=== PATIENT | female | born 1935 | race Caucasian/White ===

== ENCOUNTER 2022-09-06 11:12 | Emergency (ER) | payer MEDICARE, OTHER ==
[2022-09-06 11:32] VITALS: BP 145/120; PULSE 106
[2022-09-06] MEDS ORDERED: Sodium Chloride 0.9% 10 ML Syringe FLUSH PRN (11:59)
[2022-09-06] MEDS ORDERED: Famotidine 20 MG/2 ML SDV IVPUSH ONE (12:01)
[2022-09-06] MEDS ORDERED: Ondansetron 4 MG/2 ML SDV IV ONE (12:01)
[2022-09-06] MEDS ORDERED: Sodium Chloride 0.9% 1,000 ML IV ONE (12:01)
[2022-09-06 12:46] LABS: ANION GAP 12.2 mEq/L (7-13)
[2022-09-06] MEDS ORDERED: Iopamidol 612 MG/ML 100 ML Bottle IVPUSH ONE (12:59)
== END 2022-09-06 17:11 | disposition home or self-care (01) ==
LOC: DL.ED 11:12
DX: K83.1 Obstruction of bile duct (principal); K86.89 Other specified diseases of pancreas; K21.9 Gastro-esophageal reflux disease without esophagitis; E78.00 Pure hypercholesterolemia, unspecified; Z88.5 Allergy status to narcotic agent; Z88.1 Allergy status to other antibiotic agents; Z88.8 Allergy status to other drugs, medicaments and biological substances; Z88.2 Allergy status to sulfonamides; Z79.82 Long term (current) use of aspirin
CPT/HCPCS: 36415; 74177; 80053; 81001; 82150; 83605; 83615; 83735; 84484; 85025; 93005; J2405; J3490; J7030; Q9967; 93010; 96361; 96374; 96375; 99284; 99284-25